=== PATIENT | male | born 1980 ===

== ENCOUNTER 2020-06-25 16:22 | Outpatient (REF) | payer SELFPAY ==
[2020-06-25 16:52] LABS: Cholesterol 205 mg/dL
[2020-06-27 07:23] LABS: SARS COV2 IgG Negative (Negative)
== END 2020-06-25 16:23 | disposition home or self-care (01) ==
LOC: HO.LNC 16:22
PROVIDERS: Visit Provider Pathology Anatomic Pathology & Clinical Pathology
DX: Z13.89 Encounter for screening for other disorder (principal)
CPT/HCPCS: 82465; 86769